=== PATIENT | female | born 1960 | race Caucasian/White ===

== ENCOUNTER 2019-07-18 13:39 | Inpatient (IN) | payer MEDICAID, OTHER ==
[~2019-07-18] VITALS: Ht 162.6 cm; Wt 85.3 kg
[~2019-07-18 13:39] MED LIST: AMIT25TA PO; CLON-364 PO; CLON2TAB16 PO; FLUO20CA19 PO; IBUP-1222 PO; NAPR250T6 PO; OMEP-110 PO; OXYC-306 PO; OXYC-307 PO; THYR90TA PO
[2019-07-18] MEDS ORDERED: HYDROmorphone 1 MG/ML, 1ML INJ ONE (15:21)
[2019-07-18] MEDS ORDERED: ONDANSETRON 2MG/ML, 2ML ONE (15:21)
--- NOTE | 2019-07-18 15:24 | NUR ---
PT WITH C/O LLQ PAIN, TENDER TO TOUCH FOR THE PAST 5 DAYS. PT STATES SHE HAS BEEN HAVING PAINFUL URINATION AND SOME BLOOD IN URINE. PT WITH 2 EPISODES OF EMESIS TODAY. PT DENIES CP/SOB. PT TO BP, CONT PULSE OX. PIV INITIATED, LABS DRAWN AND SENT TO LAB. PT MEDICATED PER MAR
[2019-07-18 15:30] LABS: CULTURE INDICATED? YES; MICROSCOPIC AUTO
[2019-07-18] MEDS ORDERED: SODIUM CHLORIDE FLUSH 10ML SYR IVF ONE (15:30)
[2019-07-18] MEDS ORDERED: ONDANSETRON 2MG/ML, 2ML IVPush ONE (15:30)
[2019-07-18] MEDS ORDERED: HYDROmorphone 2 MG/ML, 1ML IVPush PRN (15:30)
[2019-07-18 15:36] LABS: BASOPHILS % (AUTO) 0 % (0-1); EOSINOPHILS # (AUTO) 0.02 x10^3/uL (0-0.4); EOSINOPHILS % (AUTO) 0 % (1-7); LYMPHOCYTES # (AUTO) 0.93 x10^3/uL (1-3.4); LYMPHOCYTES % (AUTO) 7 % (22-44); MD NO; MEAN CORPUSCULAR HGB CONC 33.6 g/dL (32.4-35.8); MEAN CORPUSCULAR VOLUME 86.2 fL (80-100); MEAN PLATELET VOLUME 7.7 fL (7.4-10.4); MONOCYTES # (AUTO) 0.78 x10^3/uL (0.2-0.8); MONOCYTES % (AUTO) 6 % (2-9); NEUTROPHILS # (AUTO) 11.82 x10^3/uL (1.8-6.8); NEUTROPHILS % (AUTO) 87 % (42-75); PLATELET COUNT 304 x10^3/uL (130-400); RED BLOOD COUNT 5.18 x10^6/uL (3.82-5.3)
--- NOTE | 2019-07-18 15:42 | NUR ---
PT ABLE TO AMBULATE TO BR WITH STEADY GAIT, UA SAMPLE COLLECTED AND SENT
[2019-07-18 15:48] LABS: ALANINE AMINOTRANSFERASE 52 U/L (12-78); ALBUMIN 3.8 g/dL (3.4-5.0); ANION GAP 8 mmol/L (5-15); CALCIUM 8.7 mg/dL (8.5-10.1); CHLORIDE 104 mmol/L (98-107); CREATININE 0.91 mg/dL (0.55-1.02)
[2019-07-18 15:50] LABS: ALKALINE PHOSPHATASE 141 U/L (45-117); BILIRUBIN,TOTAL 0.6 mg/dL (0.2-1.0); TOTAL PROTEIN 8.2 g/dL (6.4-8.2)
[2019-07-18] MEDS ORDERED: SODIUM CHLORIDE 0.9% 1,000ML IVBOLUS ONE (16:00)
[2019-07-18] MEDS ORDERED: CEFTRIAXONE PMX 1GM/50ML 50 ML ONE (16:46)
--- NOTE | 2019-07-18 16:50 | NUR ---
PT MEDICATED PER MAR, VSS, PT TO BE ADMITTED. PT AND UPDATED ON POC
[2019-07-18] MEDS ORDERED: CEFTRIAXONE PMX 1GM/50ML 50 ML IV ONE (17:00)
[2019-07-18] MEDS ORDERED: PROMETHAZINE 25 MG/ML, 1ML IM PRN (17:00)
[2019-07-18] MEDS ORDERED: ONDANSETRON ODT 4 MG PO PRN (17:00)
[2019-07-18] MEDS ORDERED: DOCUSATE 100 MG CAPSULE PO PRN (17:00)
[2019-07-18] MEDS ORDERED: POLYETHYLENE GLYCOL 17 GM PACKET PO PRN (17:00)
[2019-07-18] MEDS ORDERED: ONDANSETRON 2MG/ML, 2ML IVPush PRN (17:00)
[2019-07-18] MEDS ORDERED: BISACODYL 10 MG SUPP PR PRN (17:00)
[2019-07-18] MEDS ORDERED: hydrALAzine 20 MG/ML, 1ML IVPush PRN (17:00)
[2019-07-18] MEDS ORDERED: OMNIPAQUE 350 MG/ML, 100ML BOTTLE ONE (17:28)
[2019-07-18 17:29] LABS: FREE T4 (FREE THYROXINE) 1.17 ng/dL (0.76-1.46)
[2019-07-18] MEDS: SODIUM CHLORIDE 0.9% 1,000 ML IV SCH (18:07)
[2019-07-18] MEDS: morphine SULFATE 10 MG/ML, 1ML IVPush PRN (18:11)
[2019-07-18 18:14] VITALS: BP 180/95
[2019-07-18 19:02] VITALS: BP 121/76
[2019-07-18] MEDS: OXYcodone IR 5MG TABLET PO PRN (20:21)
[2019-07-19] MEDS: SODIUM CHLORIDE 0.9% 1,000 ML IV SCH ×3 (00:33→12:58)
[2019-07-19 00:34] VITALS: BP 101/68
[2019-07-19] MEDS: morphine SULFATE 10 MG/ML, 1ML IVPush PRN (00:48)
[2019-07-19] MEDS: ACETAMINOPHEN 325 MG TABLET PO PRN ×3 (00:48→16:41)
[2019-07-19 02:58] VITALS: BP 100/69
[2019-07-19] MEDS: THYROID 30 MG TABLET PO SCH (06:10)
[2019-07-19 06:29] LABS: MEAN CORPUSCULAR HGB CONC 33.6 g/dL (32.4-35.8); MEAN CORPUSCULAR VOLUME 86.3 fL (80-100); MEAN PLATELET VOLUME 8.2 fL (7.4-10.4); PLATELET COUNT 241 x10^3/uL (130-400); RED BLOOD COUNT 4.24 x10^6/uL (3.82-5.3); RED CELL DISTRIBUTION WIDTH 14.6 % (9.6-15.2)
[2019-07-19 06:41] LABS: ALBUMIN 2.8 g/dL (3.4-5.0); ANION GAP 8 mmol/L (5-15); CALCIUM 7.6 mg/dL (8.5-10.1); CHLORIDE 109 mmol/L (98-107)
[2019-07-19 06:46] LABS: ALANINE AMINOTRANSFERASE 35 U/L (12-78); ALKALINE PHOSPHATASE 107 U/L (45-117); BILIRUBIN,TOTAL 0.7 mg/dL (0.2-1.0); CHOL/HDL RATIO 2.7; CHOLESTEROL, TOTAL 140 mg/dL (140-239); CREATININE 1.07 mg/dL (0.55-1.02); HDL CHOL % 36 % (28-40); HDL CHOLESTEROL (DIRECT) 51 mg/dL (40-60); LDL CHOLESTEROL,CALCULATED 69 mg/dL (54-169); LDL/HDL RATIO 1.4 (0.5-3.0); TOTAL PROTEIN 6.5 g/dL (6.4-8.2); TRIGLYCERIDES 98 mg/dL (50-200); VLDL CHOLESTEROL 20 mg/dL (0-25)
[2019-07-19 07:00] LABS: BASOPHILS # (AUTO) 0.01 x10^3/uL (0-0.1); BASOPHILS % (AUTO) 0 % (0-1); EOSINOPHILS # (AUTO) 0.02 x10^3/uL (0-0.4); EOSINOPHILS % (AUTO) 0 % (1-7); LYMPHOCYTES # (AUTO) 1.46 x10^3/uL (1-3.4); LYMPHOCYTES % (AUTO) 10 % (22-44); MD SCAN; MONOCYTES # (AUTO) 1.25 x10^3/uL (0.2-0.8); MONOCYTES % (AUTO) 9 % (2-9); NEUTROPHILS # (AUTO) 11.72 x10^3/uL (1.8-6.8); NEUTROPHILS % (AUTO) 81 % (42-75)
[2019-07-19] MEDS ORDERED: CALCIUM GLUCONATE 4.6 MEQ in SODIUM CHLORIDE 0.9% 100 ML IV ONE (08:00)
[2019-07-19 08:34] VITALS: BP 112/70
[2019-07-19] MEDS: OXYcodone IR 5MG TABLET PO PRN ×2 (09:50→21:24)
[2019-07-19] MEDS: CEFTRIAXONE PMX 2GM/50ML 50 ML IV SCH (14:16)
[2019-07-19 16:41] VITALS: BP 148/78
[2019-07-19 18:30] VITALS: BP 143/73
[2019-07-20] MEDS: ACETAMINOPHEN 325 MG TABLET PO PRN ×4 (00:03→21:37)
[2019-07-20] MEDS: SODIUM CHLORIDE 0.9% 1,000 ML IV SCH ×2 (00:13→06:44)
[2019-07-20 00:38] VITALS: BP 103/61
[2019-07-20 05:17] LABS: BASOPHILS # (AUTO) 0.03 x10^3/uL (0-0.1); BASOPHILS % (AUTO) 0 % (0-1); EOSINOPHILS # (AUTO) 0.02 x10^3/uL (0-0.4); EOSINOPHILS % (AUTO) 0 % (1-7); LYMPHOCYTES % (AUTO) 16 % (22-44); MD NO; MEAN CORPUSCULAR HEMOGLOBIN 29.5 pg (27.0-34.8); MEAN CORPUSCULAR HGB CONC 33.7 g/dL (32.4-35.8); MEAN CORPUSCULAR VOLUME 87.5 fL (80-100); MEAN PLATELET VOLUME 8.3 fL (7.4-10.4); MONOCYTES # (AUTO) 0.88 x10^3/uL (0.2-0.8); MONOCYTES % (AUTO) 8 % (2-9); NEUTROPHILS # (AUTO) 8.41 x10^3/uL (1.8-6.8); NEUTROPHILS % (AUTO) 76 % (42-75); PLATELET COUNT 226 x10^3/uL (130-400); RED BLOOD COUNT 4.26 x10^6/uL (3.82-5.3); RED CELL DISTRIBUTION WIDTH 14.9 % (9.6-15.2)
[2019-07-20 05:24] LABS: ALBUMIN 2.7 g/dL (3.4-5.0); ANION GAP 6 mmol/L (5-15); CALCIUM 7.8 mg/dL (8.5-10.1); CHLORIDE 109 mmol/L (98-107); CREATININE 0.71 mg/dL (0.55-1.02)
[2019-07-20] MEDS: THYROID 30 MG TABLET PO SCH (06:00)
[2019-07-20 07:02] VITALS: BP 160/98
[2019-07-20] MEDS ORDERED: POTASSIUM PHOSPHATE 44 MEQ in SODIUM CHLORIDE 0.9% 500 ML IV ONE (07:30)
[2019-07-20] MEDS ORDERED: CALCIUM GLUCONATE 4.6 MEQ in SODIUM CHLORIDE 0.9% 100 ML IV ONE (07:30)
[2019-07-20 13:01] VITALS: BP 187/117
[2019-07-20 14:20] VITALS: BP 162/92
[2019-07-20] MEDS: CEFTRIAXONE PMX 2GM/50ML 50 ML IV SCH (15:00)
[2019-07-20 21:29] VITALS: BP 169/88
[2019-07-20] MEDS: OXYcodone IR 5MG TABLET PO PRN (21:38)
[2019-07-21] MEDS: SODIUM CHLORIDE 0.9% 1,000 ML IV SCH ×2 (00:47→08:23)
[2019-07-21 00:56] VITALS: BP 142/89
[2019-07-21] MEDS: THYROID 30 MG TABLET PO SCH (06:00)
[2019-07-21 06:08] LABS: ALBUMIN 2.6 g/dL (3.4-5.0); ANION GAP 10 mmol/L (5-15); CALCIUM 7.7 mg/dL (8.5-10.1); CHLORIDE 104 mmol/L (98-107)
[2019-07-21 06:09] LABS: CREATININE 0.59 mg/dL (0.55-1.02)
[2019-07-21 06:16] LABS: BASOPHILS # (AUTO) 0.02 x10^3/uL (0-0.1); BASOPHILS % (AUTO) 0 % (0-1); EOSINOPHILS # (AUTO) 0.03 x10^3/uL (0-0.4); EOSINOPHILS % (AUTO) 0 % (1-7); LYMPHOCYTES # (AUTO) 1.36 x10^3/uL (1-3.4); LYMPHOCYTES % (AUTO) 16 % (22-44); MD NO; MEAN CORPUSCULAR HEMOGLOBIN 29.7 pg (27.0-34.8); MEAN CORPUSCULAR HGB CONC 33.9 g/dL (32.4-35.8); MEAN CORPUSCULAR VOLUME 87.6 fL (80-100); MEAN PLATELET VOLUME 8.1 fL (7.4-10.4); MONOCYTES # (AUTO) 0.72 x10^3/uL (0.2-0.8); MONOCYTES % (AUTO) 9 % (2-9); NEUTROPHILS # (AUTO) 6.21 x10^3/uL (1.8-6.8); NEUTROPHILS % (AUTO) 75 % (42-75); PLATELET COUNT 256 x10^3/uL (130-400); RED BLOOD COUNT 4.18 x10^6/uL (3.82-5.3); RED CELL DISTRIBUTION WIDTH 14.3 % (9.6-15.2)
[2019-07-21] MEDS: ACETAMINOPHEN 325 MG TABLET PO PRN ×2 (06:26→19:53)
[2019-07-21 06:44] VITALS: BP 149/87
[2019-07-21] MEDS ORDERED: CALCIUM GLUCONATE 4.6 MEQ in SODIUM CHLORIDE 0.9% 100 ML IV ONE (07:30)
[2019-07-21] MEDS ORDERED: POTASSIUM CHLORIDE 20 MEQ in SODIUM CHLORIDE 0.9% 250 ML IV ONE (07:30)
[2019-07-21 12:32] VITALS: BP 125/79
[2019-07-21] MEDS ORDERED: LEVOFLOXACIN 750 MG TABLET PO SCH (19:30)
[2019-07-21 19:45] VITALS: BP 155/98
[2019-07-21] MEDS ORDERED: CEFDINIR 300 MG CAPSULE PO SCH (21:00)
[2019-07-22 00:09] VITALS: BP 134/84
[2019-07-22] MEDS ORDERED: TRAZODONE 50MG TABLET PO PRN (02:30)
[2019-07-22] MEDS: THYROID 30 MG TABLET PO SCH (05:26)
[2019-07-22 06:58] LABS: BASOPHILS # (AUTO) 0.04 x10^3/uL (0-0.1); BASOPHILS % (AUTO) 1 % (0-1); EOSINOPHILS # (AUTO) 0.16 x10^3/uL (0-0.4); EOSINOPHILS % (AUTO) 2 % (1-7); LYMPHOCYTES # (AUTO) 1.36 x10^3/uL (1-3.4); LYMPHOCYTES % (AUTO) 21 % (22-44); MD NO; MEAN CORPUSCULAR HEMOGLOBIN 29.1 pg (27.0-34.8); MEAN CORPUSCULAR HGB CONC 33.8 g/dL (32.4-35.8); MEAN CORPUSCULAR VOLUME 86.2 fL (80-100); MEAN PLATELET VOLUME 8.3 fL (7.4-10.4); MONOCYTES # (AUTO) 0.63 x10^3/uL (0.2-0.8); MONOCYTES % (AUTO) 10 % (2-9); NEUTROPHILS # (AUTO) 4.41 x10^3/uL (1.8-6.8); NEUTROPHILS % (AUTO) 67 % (42-75); PLATELET COUNT 300 x10^3/uL (130-400); RED BLOOD COUNT 4.81 x10^6/uL (3.82-5.3); RED CELL DISTRIBUTION WIDTH 14.2 % (9.6-15.2)
[2019-07-22 07:04] LABS: ALBUMIN 2.9 g/dL (3.4-5.0); ANION GAP 9 mmol/L (5-15); CALCIUM 8.5 mg/dL (8.5-10.1); CHLORIDE 104 mmol/L (98-107)
[2019-07-22 07:05] LABS: CREATININE 0.55 mg/dL (0.55-1.02)
[2019-07-22 08:09] VITALS: BP 137/85
[2019-07-22] MEDS ORDERED: LEVO750T26 PO (10:03)
== END 2019-07-22 11:30 | disposition home or self-care (01) | DRG 872 ==
LOC: ED 16:46 → EDIP 16:47 → 3N 17:13 → DCLOUNGE 07-22 11:20
PROVIDERS: ADMIT Internal Medicine; ATTEND Family Medicine
DX: A41.51 Sepsis due to Escherichia coli [E. coli] (principal); N12 Tubulo-interstitial nephritis, not specified as acute or chronic; E03.9 Hypothyroidism, unspecified; K76.0 Fatty (change of) liver, not elsewhere classified; Z80.41 Family history of malignant neoplasm of ovary; Z82.49 Family history of ischemic heart disease and other diseases of the circulatory system; Z87.891 Personal history of nicotine dependence; Z90.710 Acquired absence of both cervix and uterus; Z88.0 Allergy status to penicillin
CPT/HCPCS: 36415; 74177; 80053; 80061; 80069; 81001; 83036; 83605; 83690; 83735; 84145; 84439; 84443; 85025; 87040; 87077; 87086; 87186; 96365; 96375; G0378; J0610; J0696; J1170; J2405; J3480; Q9967; J0360; J2270; J7030; J7040; J7050